=== PATIENT | male | born 1945 | race Caucasian/White ===

== ENCOUNTER 2019-04-18 16:55 | Observation (INO) | payer OTHER ==
[~2019-04-18] VITALS: Ht 177.8 cm; Wt 79.5 kg
[~2019-04-18 16:55] MED LIST: DIOVAN160 MG PO; LEVITRA20 MG OR; LOPRESSOR25 MG; NIACIN500 MG OR; PLAVIX75 MG PO; RESTORIL15 MG PO; SIMVASTATIN80 MG PO
[2019-04-18 17:47] LABS: HEMATOCRIT 44.4 % (39.0-50.0); HEMOGLOBIN 14.4 g/dl (14.0-18.0); IMMATURE GRANULOCYTES 0.7 % (0.0-5.0); MEAN CELL VOLUME 89.3 fL CALC (80.0-100.0); MEAN CORPUSCULAR HGB CONC 32.4 g/L CALC (32.0-36.0); NEUT# 17.02 thou/uL (1.82-7.42); RED BLOOD COUNT 4.97 mill/uL (4.70-6.10); RED CELL DISTRI WIDTH 14.9 % (11.5-15.5)
[2019-04-18 18:00] LABS: ALKALINE PHOSPHATASE 81 u/l (38-126); ANION GAP 13 (6-22 (CALC)); BUN 22 mg/dL (8-23); BUN/CREATININE RATIO 18 (12-20 (CALC)); CARBON DIOXIDE 24 mmol/l (22-30); CHLORIDE 104 mmol/l (95-108); CREATININE 1.2 mg/dL (0.7-1.3); GFR 59 ML/MIN (>=60 (CALC)); GFR FOR AFR.AMER. > 60 ML/MIN (>=60 (CALC)); LIPASE 80 u/l (23-300); POTASSIUM 4.4 mmol/l (3.5-5.1); SGOT/AST 20 u/l (19-48); SODIUM 136 mmol/l (137-146); TOTAL PROTEIN 6.9 g/dL (6.3-8.2)
[2019-04-18 18:09] LABS: BILIRUBIN, TOTAL 1.3 mg/dL (0.0-1.4)
[2019-04-18 20:55] LABS: URINE BILIRUBIN - DIPSTICK NEGATIVE (NEGATIVE); URINE BLOOD DIPSTICK NEGATIVE (NEGATIVE); URINE COLOR YELLOW; URINE GLUCOSE - DIPSTICK NEGATIVE (NEGATIVE); URINE KETONE NEGATIVE (NEGATIVE); URINE LEUK ESTERASE NEGATIVE (NEGATIVE); URINE NITRITE - DIPSTICK NEGATIVE (Negative); URINE PROTEIN - DIPSTICK NEGATIVE (NEG-TRACE); URINE SPECIFIC GRAVITY <=1.005; URINE UROBILINOGEN - DIPSTICK 0.2 E.U./dL (0.2)
[2019-04-18 21:30] VITALS: BP 136/81
[2019-04-19 04:23] VITALS: BP 124/74
[2019-04-19 05:16] LABS: HEMATOCRIT 39.2 % (39.0-50.0); HEMOGLOBIN 12.6 g/dl (14.0-18.0); MEAN CELL VOLUME 90.1 fL CALC (80.0-100.0); MEAN CORPUSCULAR HGB CONC 32.1 g/L CALC (32.0-36.0); RED BLOOD COUNT 4.35 mill/uL (4.70-6.10)
[2019-04-19 05:43] LABS: ANION GAP 9 (6-22 (CALC)); BUN 16 mg/dL (8-23); BUN/CREATININE RATIO 17 (12-20 (CALC)); CARBON DIOXIDE 23 mmol/l (22-30); CHLORIDE 109 mmol/l (95-108); CREATININE 0.9 mg/dL (0.7-1.3); GFR > 60 ML/MIN (>=60 (CALC)); GFR FOR AFR.AMER. > 60 ML/MIN (>=60 (CALC)); POTASSIUM 3.8 mmol/l (3.5-5.1); SODIUM 137 mmol/l (137-146)
[2019-04-19 08:42] VITALS: BP 113/66
[2019-04-19 11:15] VITALS: BP 115/71
[2019-04-19 16:43] VITALS: BP 141/86
[2019-04-19 19:31] VITALS: BP 135/70
[2019-04-19 23:15] VITALS: BP 145/98
[2019-04-20 04:24] VITALS: BP 152/87
[2019-04-20 05:17] LABS: HEMATOCRIT 39.6 % (39.0-50.0); HEMOGLOBIN 12.9 g/dl (14.0-18.0); MEAN CELL VOLUME 90.4 fL CALC (80.0-100.0); MEAN CORPUSCULAR HGB 29.5 pG CALC (26.0-32.0); MEAN CORPUSCULAR HGB CONC 32.6 g/L CALC (32.0-36.0); RED BLOOD COUNT 4.38 mill/uL (4.70-6.10); RED CELL DISTRI WIDTH 14.7 % (11.5-15.5)
[2019-04-20 05:43] LABS: ALKALINE PHOSPHATASE 56 u/l (38-126); ANION GAP 10 (6-22 (CALC)); BUN 13 mg/dL (8-23); BUN/CREATININE RATIO 14 (12-20 (CALC)); CARBON DIOXIDE 21 mmol/l (22-30); CHLORIDE 113 mmol/l (95-108); CREATININE 0.9 mg/dL (0.7-1.3); GFR > 60 ML/MIN (>=60 (CALC)); GFR FOR AFR.AMER. > 60 ML/MIN (>=60 (CALC)); SGOT/AST 20 u/l (19-48); SODIUM 140 mmol/l (137-146)
[2019-04-20 06:17] LABS: ALBUMIN 2.8 g/dL (3.2-5.0); BILIRUBIN, TOTAL 0.6 mg/dL (0.0-1.4); TOTAL PROTEIN 5.3 g/dL (6.3-8.2)
[2019-04-20 09:14] VITALS: BP 133/85
[2019-04-20 09:16] VITALS: BP 133/85
[2019-04-20] MEDS ORDERED: ZITHROMAX500 MG PO (09:26)
== END 2019-04-20 10:54 | disposition home or self-care (01) | DRG 373 ==
LOC: ED 16:55 → ED-I 20:34 → ED 20:47 → MS2 20:48
PROVIDERS: Family Medicine; Internal Medicine; ADMIT Internal Medicine; ATTEND Internal Medicine
DX: A04.5 Campylobacter enteritis (principal); I10 Essential (primary) hypertension; E78.5 Hyperlipidemia, unspecified; I25.10 Atherosclerotic heart disease of native coronary artery without angina pectoris; I25.2 Old myocardial infarction; Z95.1 Presence of aortocoronary bypass graft; Z95.5 Presence of coronary angioplasty implant and graft; Z87.891 Personal history of nicotine dependence
CPT/HCPCS: Q9967

== ENCOUNTER 2020-08-12 07:18 | Inpatient (IN) | payer OTHER, MEDICARE ==
[~2020-08-12] VITALS: Ht 177.8 cm; Wt 81.2 kg
[~2020-08-12 07:18] MED LIST changes: +ZITHROMAX500 MG PO
[2020-08-12 08:11] LABS: HEMATOCRIT 39.1 % (39.0-50.0); HEMOGLOBIN 12.6 g/dl (14.0-18.0); IMMATURE GRANULOCYTES 0.3 % (0.0-5.0); MEAN CELL VOLUME 92.2 fL CALC (80.0-100.0); MEAN CORPUSCULAR HGB 29.7 pG CALC (26.0-32.0); MEAN CORPUSCULAR HGB CONC 32.2 g/dL CAL (32.0-36.0); NEUT# 11.59 thou/uL (1.82-7.42); RED BLOOD COUNT 4.24 mill/uL (4.70-6.10); RED CELL DISTRI WIDTH 13.2 % (11.5-15.5)
[2020-08-12 08:28] LABS: ANION GAP 10 (6-22 (CALC)); BUN 25 mg/dL (8-23); BUN/CREATININE RATIO 19 (12-20 (CALC)); CHLORIDE 106 mmol/l (95-108); CREATININE 1.3 mg/dL (0.7-1.3); GFR 54 ML/MIN (>=60 (CALC)); GFR FOR AFR.AMER. > 60 ML/MIN (>=60 (CALC)); POTASSIUM 4.2 mmol/l (3.5-5.1); SODIUM 138 mmol/l (137-146)
[2020-08-12 08:31] LABS: CARBON DIOXIDE 26 mmol/l (22-30)
[2020-08-12] MEDS ORDERED: CRESTOR40 MG PO (08:49)
[2020-08-12] MEDS ORDERED: SPIRONOLACT25 MG PO (08:49)
[2020-08-12] MEDS ORDERED: ISOSORB MONO30 MG PO (08:50)
[2020-08-12 11:35] VITALS: BP 119/68
[2020-08-12 15:07] VITALS: BP 106/62
[2020-08-12 19:00] VITALS: BP 114/65
[2020-08-13] VITALS: BP 102/47
[2020-08-13 03:56] VITALS: BP 123/80
[2020-08-13 05:16] LABS: HEMATOCRIT 40.7 % (39.0-50.0); HEMOGLOBIN 13.1 g/dl (14.0-18.0); IMMATURE GRANULOCYTES 0.3 % (0.0-5.0); MEAN CELL VOLUME 92.3 fL CALC (80.0-100.0); MEAN CORPUSCULAR HGB 29.7 pG CALC (26.0-32.0); MEAN CORPUSCULAR HGB CONC 32.2 g/dL CAL (32.0-36.0); NEUT# 8.65 thou/uL (1.82-7.42); RED BLOOD COUNT 4.41 mill/uL (4.70-6.10); RED CELL DISTRI WIDTH 13.2 % (11.5-15.5)
[2020-08-13 05:38] LABS: ALBUMIN 3.2 g/dL (3.2-5.0); BILIRUBIN, TOTAL 0.8 mg/dL (0.0-1.4); CREATININE 1.4 mg/dL (0.7-1.3); MAGNESIUM 2.1 mg/dL (1.6-2.3); POTASSIUM 4.1 mmol/l (3.5-5.1); TOTAL PROTEIN 5.8 g/dL (6.3-8.2)
[2020-08-13 07:00] LABS: CHOLESTEROL HDL RATIO 2.7 (<4.4 (CALC))
[2020-08-13 07:15] VITALS: BP 128/69
[2020-08-13 10:30] VITALS: BP 105/59
[2020-08-13] MEDS ORDERED: ALDACTONE50 MG PO (14:44)
[2020-08-13] MEDS ORDERED: LASIX40 MG PO (14:44)
[2020-08-13] MEDS ORDERED: KLOR-CON M2020 MEQ PO (14:44)
[2020-08-13] MEDS ORDERED: MAGN SULFATE70 MG PO (14:45)
[2020-08-13] MEDS ORDERED: ZITHROMAX250 MG PO (14:57)
[2020-08-13] MEDS ORDERED: AMOX/K CLAV875 M1 PO (14:57)
== END 2020-08-13 13:53 | disposition home or self-care (01) | DRG 291 ==
LOC: ED 07:18 → ED-I 09:30 → ED 09:50 → MS2 09:51
PROVIDERS: Family Medicine; Nurse Practitioner; ADMIT Internal Medicine; ATTEND Internal Medicine
DX: I11.0 Hypertensive heart disease with heart failure (principal); J18.9 Pneumonia, unspecified organism; I50.23 Acute on chronic systolic (congestive) heart failure; N28.9 Disorder of kidney and ureter, unspecified; E11.9 Type 2 diabetes mellitus without complications; I25.10 Atherosclerotic heart disease of native coronary artery without angina pectoris; E78.5 Hyperlipidemia, unspecified; Z95.1 Presence of aortocoronary bypass graft; Z95.5 Presence of coronary angioplasty implant and graft; Z87.891 Personal history of nicotine dependence; Z20.828 Contact with and (suspected) exposure to other viral communicable diseases
CPT/HCPCS: J1650

== ENCOUNTER 2022-06-02 13:53 | Emergency (ER) | payer OTHER ==
[2022-06-02] VITALS (9 sets, daily range): BP systolic 119–139; BP diastolic 61–75
[~2022-06-02] VITALS: Ht 177.8 cm; Wt 82.7 kg
[~2022-06-02 13:53] MED LIST changes: +ALDACTONE50 MG PO; +AMOX/K CLAV875 M1 PO; +CRESTOR40 MG PO; +ISOSORB MONO30 MG PO; +KLOR-CON M2020 MEQ PO; +LASIX40 MG PO; +MAGN SULFATE70 MG PO; +SPIRONOLACT25 MG PO; +ZITHROMAX250 MG PO
[2022-06-02 14:34] LABS: HEMATOCRIT 38.5 % (39.0-50.0); HEMOGLOBIN 12.4 g/dl (14.0-18.0); IMMATURE GRANULOCYTES 0.1 % (0.0-5.0); MEAN CELL VOLUME 92.3 fL CALC (80.0-100.0); MEAN CORPUSCULAR HGB 29.7 pG CALC (26.0-32.0); MEAN CORPUSCULAR HGB CONC 32.2 g/dL CAL (32.0-36.0); NEUT# 5.04 thou/uL (1.82-7.42); RED BLOOD COUNT 4.17 mill/uL (4.70-6.10); RED CELL DISTRI WIDTH 13.3 % (11.5-15.5)
[2022-06-02 14:44] LABS: BILIRUBIN, TOTAL 0.7 mg/dL (0.0-1.4); CREATININE 1.5 mg/dL (0.7-1.3); POTASSIUM 4.3 mmol/l (3.5-5.1)
[2022-06-02 14:55] LABS: ALBUMIN 4.2 g/dL (3.2-5.0); TOTAL PROTEIN 7.1 g/dL (6.3-8.2)
[2022-06-02 15:22] LABS: URINE BILIRUBIN - DIPSTICK NEGATIVE (NEGATIVE); URINE BLOOD DIPSTICK TRACE-INTACT (NEGATIVE); URINE COLOR YELLOW; URINE GLUCOSE - DIPSTICK NEGATIVE (NEGATIVE); URINE KETONE NEGATIVE (NEGATIVE); URINE LEUK ESTERASE NEGATIVE (NEGATIVE); URINE PROTEIN - DIPSTICK NEGATIVE (NEG-TRACE); URINE SPECIFIC GRAVITY 1.025; URINE UROBILINOGEN - DIPSTICK 0.2 E.U./dL (0.2)
[2022-06-02 15:24] LABS: URINE NITRITE - DIPSTICK NEGATIVE (Negative)
[2022-06-02] MEDS ORDERED: AZITHROMYCIN500 MG PO (17:39)
== END 2022-06-02 18:13 | disposition home or self-care (01) | DRG 392 ==
LOC: ED 13:53
PROVIDERS: Nurse Practitioner
DX: R19.7 Diarrhea, unspecified (principal); Z95.1 Presence of aortocoronary bypass graft

== ENCOUNTER 2023-02-19 06:03 | Emergency (ER) | payer OTHER ==
[2023-02-19] VITALS (18 sets, daily range): BP systolic 88–125; BP diastolic 42–75
[~2023-02-19] VITALS: Ht 177.8 cm; Wt 80.0 kg
[~2023-02-19 06:03] MED LIST changes: +AZITHROMYCIN500 MG PO
[2023-02-19] MEDS ORDERED: LASIX 20 MG TAB20 MG PO (06:34)
[2023-02-19 06:56] LABS: URINE BILIRUBIN - DIPSTICK NEGATIVE (NEGATIVE); URINE BLOOD DIPSTICK SMALL (NEGATIVE); URINE COLOR YELLOW; URINE GLUCOSE - DIPSTICK NEGATIVE (NEGATIVE); URINE KETONE NEGATIVE (NEGATIVE); URINE LEUK ESTERASE NEGATIVE (NEGATIVE); URINE PROTEIN - DIPSTICK 30 mg/dL (NEG-TRACE); URINE UROBILINOGEN - DIPSTICK 0.2 E.U./dL (0.2)
[2023-02-19 06:57] LABS: BASO% 0.2 % (0-3); EOS% 0.9 % (0-8); HEMATOCRIT 49.4 % (39.0-50.0); HEMOGLOBIN 15.8 g/dl (14.0-18.0); IMMATURE GRANULOCYTES 0.2 % (0.0-5.0); LYMPH% 11.4 % (15-41); MEAN CELL VOLUME 93.4 fL CALC (80.0-100.0); MEAN CORPUSCULAR HGB 29.9 pG CALC (26.0-32.0); MONO% 9.3 % (2-13); NEUT# 15.39 thou/uL (1.82-7.42); RED BLOOD COUNT 5.29 mill/uL (4.70-6.10); RED CELL DISTRI WIDTH 13.9 % (11.5-15.5)
[2023-02-19 07:04] LABS: URINE NITRITE - DIPSTICK NEGATIVE (Negative); URINE SQUAMOUS EPITHELIAL CELL RARE EPI/hpf (0-FEW)
[2023-02-19 07:16] LABS: ALBUMIN 4.2 g/dL (3.2-5.0); ALKALINE PHOSPHATASE 78 u/l (38-126); ANION GAP 15 (6-22 (CALC)); BILIRUBIN, TOTAL 2.5 mg/dL (0.2-1.3); BUN 30 mg/dL (8-23); BUN/CREATININE RATIO 23 (12-20 (CALC)); CARBON DIOXIDE 27 mmol/l (22-30); CHLORIDE 97 mmol/l (95-108); CREATININE 1.3 mg/dL (0.7-1.3); GFR FOR AFR.AMER. > 60 ML/MIN (>=60 (CALC)); GFR OTHER RACES 53 ML/MIN (>=60 (CALC)); LIPASE 112 u/l (23-300); POTASSIUM 4.9 mmol/l (3.5-5.1); SGOT/AST 29 u/l (19-48); SODIUM 134 mmol/l (137-146); TOTAL PROTEIN 7.2 g/dL (6.3-8.2)
[2023-02-19] MEDS ORDERED: METRONIDAZOLE500 MG PO (10:23)
[2023-02-19] MEDS ORDERED: ZOFRAN4 MG/TAB PO (10:23)
[2023-02-19] MEDS ORDERED: CIPROFLOXACN500 MG PO (10:23)
== END 2023-02-19 11:39 | disposition home or self-care (01) | DRG 392 ==
LOC: ED 06:03
PROVIDERS: Family Medicine
DX: K57.32 Diverticulitis of large intestine without perforation or abscess without bleeding (principal); Z95.1 Presence of aortocoronary bypass graft

== ENCOUNTER 2023-02-22 08:14 | Emergency (ER) | payer OTHER ==
[2023-02-22] VITALS (11 sets, daily range): BP systolic 105–128; BP diastolic 48–76
[~2023-02-22] VITALS: Ht 177.8 cm; Wt 73.0 kg
[~2023-02-22 08:14] MED LIST changes: +CIPROFLOXACN500 MG PO; +LASIX 20 MG TAB20 MG PO; +METRONIDAZOLE500 MG PO; +ZOFRAN4 MG/TAB PO
[2023-02-22 09:23] LABS: BASO% 0.4 % (0-3); EOS% 2.5 % (0-8); IMMATURE GRANULOCYTES 0.3 % (0.0-5.0); LYMPH% 10.8 % (15-41); MEAN CORPUSCULAR HGB CONC 31.6 g/dL CAL (32.0-36.0); MONO% 10.9 % (2-13); NEUT# 8.11 thou/uL (1.82-7.42); NEUT% 75.1 % (42-76); RED BLOOD COUNT 4.16 mill/uL (4.70-6.10); RED CELL DISTRI WIDTH 13.9 % (11.5-15.5)
[2023-02-22 09:25] LABS: ALKALINE PHOSPHATASE 60 u/l (38-126); ANION GAP 11 (6-22 (CALC)); BUN 22 mg/dL (8-23); BUN/CREATININE RATIO 16 (12-20 (CALC)); CARBON DIOXIDE 26 mmol/l (22-30); CHLORIDE 101 mmol/l (95-108); CREATININE 1.3 mg/dL (0.7-1.3); GFR FOR AFR.AMER. > 60 ML/MIN (>=60 (CALC)); GFR OTHER RACES 53 ML/MIN (>=60 (CALC)); POTASSIUM 4.7 mmol/l (3.5-5.1); SGOT/AST 28 u/l (19-48); SODIUM 133 mmol/l (137-146); TOTAL PROTEIN 5.9 g/dL (6.3-8.2)
[2023-02-22 09:28] LABS: ALBUMIN 3.3 g/dL (3.2-5.0); BILIRUBIN, TOTAL 0.8 mg/dL (0.2-1.3)
[2023-02-22 09:30] LABS: HEMATOCRIT 39.5 % (39.0-50.0); HEMOGLOBIN 12.5 g/dl (14.0-18.0)
[2023-02-22 10:15] LABS: URINE BILIRUBIN - DIPSTICK NEGATIVE (NEGATIVE); URINE BLOOD DIPSTICK NEGATIVE (NEGATIVE); URINE COLOR YELLOW; URINE GLUCOSE - DIPSTICK NEGATIVE (NEGATIVE); URINE KETONE NEGATIVE (NEGATIVE); URINE LEUK ESTERASE NEGATIVE (NEGATIVE); URINE PROTEIN - DIPSTICK TRACE mg/dL (NEG-TRACE); URINE SPECIFIC GRAVITY 1.015
[2023-02-22 10:16] LABS: URINE NITRITE - DIPSTICK NEGATIVE (Negative)
[2023-02-22] MEDS ORDERED: PROTONIX40 MG PO (18:30)
== END 2023-02-22 18:35 | disposition home or self-care (01) | DRG 392 ==
LOC: ED 08:14
PROVIDERS: Family Medicine
DX: K29.70 Gastritis, unspecified, without bleeding (principal); M54.9 Dorsalgia, unspecified; Z95.1 Presence of aortocoronary bypass graft
CPT/HCPCS: A9537; J2805; S0164